=== PATIENT | female | born 1965 | race Caucasian/White ===

== ENCOUNTER 2020-04-20 19:26 | Emergency (ER) | payer BC ==
[~2020-04-20] VITALS: Ht 165.1 cm; Wt 144.7 kg
[~2020-04-20 19:26] MED LIST: ACET-819 PO; ALPR.25T PO; AMLO5TAB2 PO; ESTR1PAT81 PO; FAMO20TA13 PO; FEXO180T PO; FLC100T1 PO; GUAI400T51 PO; HYDR-3857 PO; HYOS0.1216 PO; IBP200T PO; LISI10TA2 PO; LISI20TA PO; LORA0.5T34 PO; METO-272 PO; MNTL10T PO; NITROGLYCERIN PR; NYST1000 PO; OMEP-10 PO; OXYC-29 PO; PANT40TA PO; PHEN30SP4 NS; PRD20T PO; RABE20TA PO; SULF-222 PO; TRAM50TA2 PO; [UNRECOGNIZED DRUG - CODE] PO; [UNRECOGNIZED DRUG - CODE] PO; [UNRECOGNIZED DRUG - OTHER] PO
--- NOTE | 2020-04-20 20:31 | ED General ---
General Chief Complaint: Allergic Reaction Stated Complaint: POSSIBLE MED REACTION/SOA Nursing Triage Note: pt had steroid injection to foot yesterday and has multiple compliants-not able to sleep, anxiety-soa, face burning, upset stomach last night, and dry nasal passages Nursing Sepsis Screen: No Definite Risk Source of Information: Patient History of Present Illness Date Seen by Provider: Apr 20, 2020 Time Seen by Provider: 20:11 Initial Comments 54-year-old female presenting with concerns about feeling like her skin is on fire, dryness in her throat, difficulty sleeping, shortness of breath, slight wheezing when she lays down to go to sleep. She states that she chronically has difficulty sleeping. She always is short of breath and has chronic horrible allergies with medicines that do not usually help. She had a steroid shot in her foot this week and was very anxious and worked up about having that done. She states it is very painful to have the shot done and that she has had similar reactions when she had steroid injections in the past. She tolerates steroid pills but the injections always give her a lot of side effects. She was arguing with her daughter monae because her daughter wanted her checked to see if she had something more than just side effects from medications. They were concerned she might have Covid or some other infection going on rather than just side effects from the steroid shot. Because of the argument with her daughter and being upset and anxious that made her symptoms worse. When her friend came to pick her up to bring her to the emergency department that helped calm her down and her symptoms improved after arriving in the emergency department and being in a cool environment that also helped to calm her down and improved her symptoms. Allergies and Home Medications Allergies Coded Allergies: cetirizine HCl (Verified Allergy, Intermediate, RASH, 08/22/12) levocetirizine dihydrochloride (Verified Allergy, Intermediate, ANAPHYLAXIS, 10/08/12) Home Medications Acetaminophen 500 Mg Tablet, 1,000 MG PO Q6H PRN for PAIN, (Reported) TAKES 2 (500MG) TABLETS Amlodipine Besylate 5 Mg Tablet, 5 MG PO DAILY, (Reported) Diphenhydramine Hcl 25 Mg Capsule, 50 MG PO TID PRN for ALLERGIES, (Reported) TAKES 2 (25MG) CAPSULES Lisinopril 20 Mg Tablet, 20 MG PO DAILY, (Reported) Lorazepam 0.5 Mg Tablet, 0.5 MG PO Q6H PRN for ANXIETY, (Reported) Omeprazole 20 Mg Capsule.dr, 20 MG PO HS PRN for STOMACH UPSET, (Reported) Patient Home Medication List Home Medication List Reviewed: Yes Review of Systems Review of Systems Constitutional: chills, fever (Subjective and having the sensation that her s kin is on fire) EENTM: ear pain (Pressure in her ears from congestion), nose pain (Feels like her nasal passages are dried out), other (Feels like her throat is dried out and having trouble swallowing because of it); No ear discharge, No blurred vision, No eye pain, No vision loss, No epistaxis, No nose congestion Respiratory: short of breath (Feels short of breath because of dryness in her throat and sinuses) Cardiovascular: no symptoms reported Gastrointestinal: nausea; No vomiting Genitourinary: No dysuria Musculoskeletal: see HPI Skin: see HPI Psychiatric/Neurological: Anxiety Immunological/Allergic: see HPI (Multiple allergies to multiple things) Past Hoyhtli-Tmmeny-Ceatsy Hx Past Med/Social Hx: Reviewed Nursing Past Med/Soc Hx Patient Social History Alcohol Use: Denies Use Smoking Status: Never a Smoker 2nd Hand Smoke Exposure: Yes Recent Infectious Disease Expo: No Recent Hopitalizations: No Immunizations Up To Date Tetanus Booster (TDap): Unknown Date of Influenza Vaccine: Dec 04, 2013 Seasonal Allergies Seasonal Allergies: Yes Past Medical History Surgeries: Yes Gallbladder, Hysterectomy, Joint Replacement, Tubal Ligation Respiratory: No Cardiac: Yes Neurological: No Reproductive Disorders: No [employer]EL[employer] History: Menopausal Gastrointestinal: Yes Gastroesophageal Reflux, Chronic Constipation, Chronic Diarrhea, Ulcer, Irritable Bowel Musculoskeletal: Yes (arthritis) Endocrine: No (nodules on thyroid) Dysphagia Hearing Impairment: Hard of Hearing Cancer: No Psychosocial: No Integumentary: No Blood Disorders: No Family Medical History No Pertinent Family Hx Physical Exam Vital Signs Vital Signs - First Documented 04/20/20 19:41 Temp 36.9 Pulse 69 Resp 18 B/P (MAP) 140/96 (111) Pulse Ox 97 O2 Delivery Room Air Capillary Refill : Less Than 3 Seconds Height, Weight, BMI Height: 5'8.50" Weight: 230lbs. oz. [id number]; 53.00 BMI Method:Stated General Appearance: Anxious, Mild Distress, Obese HEENT: PERRL/EOMI, Moist Mucous Membranes; No Pharyngeal Erythema, No Photophobia; TM Abnormal (L) (Effusion without erythema to the TM), TM Abnormal (R) (Effusion without erythema to the TM) Neck: Full Range of Motion, Normal Inspection, Non Tender, Supple Respiratory: Chest Non Tender, Lungs Clear, Normal Breath Sounds, No Accessory Muscle Use, No Respiratory Distress Cardiovascular: Regular Rate, Rhythm, Normal Peripheral Pulses Gastrointestinal: No Pulsatile Mass, Non Tender, Soft Extremity: Normal Capillary Refill, No Pedal Edema Neurologic/Psychiatric: Alert, Oriented x3, payable manager II-XII Norm as Tested, Other (Anxious) Skin: Normal Color, Warm/Dry Progress/Results/Core Measures Suspected Sepsis Recent Fever Within 48 Hours: No Infection Criteria Present: None New/Unexplained Altered Menta: No Sepsis Screen: No Definite Risk SIRS Temperature: Pulse: 69 Respiratory Rate: 18 Blood Pressure 140 /96 Mean: 111 Results/Orders Vital Signs/I&O 04/20/20 04/20/20 19:41 21:06 Temp 36.9 36.9 Pulse 69 69 Resp 18 18 B/P (MAP) 140/96 (111) 140/96 (111) Pulse Ox 97 97 O2 Delivery Room Air Capillary Refill : Less Than 3 Seconds Blood Pressure Mean: 111 Progress Note : Progress Note Reassured patient that her vital signs had looked ok here. Her exam was not concerning for infection and her lungs were clear. Encouraged to use nasal saline spray near bedtime and cool mist vaporizer to help with her dried out passages and throat. reassured that the steroid side effects should improve and pass. Check with clinic for continued concerns. Departure Impression Primary Impression: Steroid side effects Qualified Codes: T38.0X5A - Adverse effect of glucocorticoids and synthetic analogues, initial encounter Additional Impression: Anxiety about health Disposition: 01 HOME, SELF-CARE Condition: Stable Departure-Patient Inst. Decision time for Depature: 21:03 Referrals: MIKE ROBERTO MD (PCP/Family) Primary Care Physician Patient Instructions: Anxiety, Adult ED, Side Effects From Medicines Add. Discharge Instructions: Stay well hydrated Try using the nasal saline spray before bed to help with moisture in your nasal and sinus passages. Use a Cool Mist Vaporizer to help with moisture while you are sleeping/resting overnight The symptoms you are describing can go along with side effects from steroid injection and your allergies. Check back with clinic for continued concerns/problems All discharge instructions reviewed with patient and/or family. Voiced understanding. DANNA RUCKER MD Apr 20, 2020 20:31
[2020-04-20 21:06] VITALS: BP 140/96
== END 2020-04-20 21:06 | disposition home or self-care (01) ==
LOC: EDUNIT# 19:26 → ER FS 19:30
DX: R68.2 Dry mouth, unspecified (principal); T38.0X5A Adverse effect of glucocorticoids and synthetic analogues, initial encounter; F41.9 Anxiety disorder, unspecified; E66.9 Obesity, unspecified; K21.9 Gastro-esophageal reflux disease without esophagitis; Z68.43 Body mass index [BMI] 50.0-59.9, adult; Z77.22 Contact with and (suspected) exposure to environmental tobacco smoke (acute) (chronic); Z88.8 Allergy status to other drugs, medicaments and biological substances
CPT/HCPCS: 99281